=== PATIENT | female | born 1940 | race Caucasian/White ===

== ENCOUNTER 2020-06-08 12:08 | Emergency (ER) | payer MEDICARE ==
[~2020-06-08] VITALS: Ht 139.7 cm; Wt 78.9 kg
[2020-06-08] MEDS ORDERED: TOPROL XL100 MG PO (12:15)
[2020-06-08] MEDS ORDERED: ZESTRIL5 MG PO (12:16)
[2020-06-08] MEDS ORDERED: LABETALOL HCL100 MG PO (12:16)
[2020-06-08] MEDS ORDERED: XYZAL5 MG PO (12:16)
[2020-06-08] MEDS ORDERED: AMARYL2 M1 PO (12:16)
[2020-06-08] MEDS ORDERED: LEVEMIR100 UNIT/2 SUBQ (12:17)
[2020-06-08] MEDS ORDERED: METFORMIN HCL500 M3 PO (12:17)
[2020-06-08 13:05] LABS: URINE BILIRUBIN NEGATIVE (Negative); URINE BLOOD NEGATIVE (Negative); URINE CLARITY CLEAR; URINE COLOR YELLOW; URINE GLUCOSE-RANDOM NEGATIVE (Negative); URINE KETONES NEGATIVE (Negative); URINE NITRITE-REFLEX NEGATIVE (Negative); URINE PROTEIN NEGATIVE (Negative); URINE UROBILINOGEN 0.2 E.U./dl (0.2-1.0)
[2020-06-08 13:07] LABS: URINE LEUKOCYTES-REFLEX 2+ (Negative)
[2020-06-08 13:13] LABS: ABSOLUTE BASOPHILS 0.1 thou/uL (0.0-0.2); ABSOLUTE EOSINOPHILS 0.4 thou/uL (0.0-0.7); ABSOLUTE LYMPHOCYTES 4.5 thou/uL (0.8-5.3); ABSOLUTE MONOCYTES 0.7 thou/uL (0.0-1.2); ABSOLUTE NEUTROPHILS 5.1 thou/uL (1.6-8.1); BASOPHILS 0.5 %; EOSINOPHILS 3.9 %; HEMATOCRIT 38.2 % (37.0-47.0); HEMOGLOBIN 12.8 gm/dL (12.0-15.0); MCH 31.6 pg (26.0-34.0); MCHC 33.5 g/dL (28.0-37.0); MCV 94.4 fL (80.0-100.0); MONOCYTES 6.8 %; MPV 8.6 fl. (7.2-11.1); NUCLEATED RBCS 0 /100WBC; PLATELET COUNT* 231 thou/uL (150-400); POLYS 46.8 %; RBC 4.04 mil/uL (4.20-5.00); WBC 10.8 thou/uL (4.0-11.0)
[2020-06-08 13:23] LABS: BACTERIA-REFLEX None Seen /HPF (None Seen); CASTS None Seen /LPF (None Seen); CRYSTALS None Seen /LPF (None Seen); SQUAMOUS 0-3 Few /LPF (0-3); URINE RBC None Seen /HPF (0-2); URINE WBC-REFLEX 0-5 Rare /HPF (0-5)
[2020-06-08] MEDS ORDERED: LASIX 40 MG TAB40 M1 PO (13:25)
[2020-06-08 13:28] LABS: CALCIUM 8.9 mg/dL (8.5-10.1); CREATININE 0.9 mg/dL (0.6-1.3); POTASSIUM 4.6 mmol/L (3.5-5.1)
[2020-06-08 13:33] LABS: ALBUMIN 3.8 g/dL (3.4-5.0); TOTAL BILIRUBIN 0.2 mg/dL (<0.1-1.0); TOTAL PROTEIN 7.1 g/dL (6.4-8.2)
[2020-06-08 14:35] VITALS: BP 162/76
== END 2020-06-08 14:36 | disposition home or self-care (01) ==
LOC: M.ERS 12:08
PROVIDERS: Physician Assistant
DX: M25.551 Pain in right hip (principal); I10 Essential (primary) hypertension; E11.9 Type 2 diabetes mellitus without complications; Z98.51 Tubal ligation status; Z79.4 Long term (current) use of insulin; Z88.8 Allergy status to other drugs, medicaments and biological substances